=== PATIENT | male | born 1940 | race Caucasian/White ===

== ENCOUNTER 2019-07-10 09:57 | Day surgery (SDC) | payer MEDICARE ==
[2019-07-10] VITALS (9 sets, daily range): BP systolic 114–125; BP diastolic 62–74
[~2019-07-10] VITALS: Ht 177.8 cm; Wt 85.1 kg
[2019-07-10] MEDS ORDERED: normal saline 1,000 ML IV SCH (10:20)
[2019-07-10] MEDS ORDERED: diphenhydrAMINE 25mg capsule PO PRN (10:20)
[2019-07-10 11:30] LABS: ALBUMIN 3.9 G/DL (3.4-5.0); ANION GAP 12 (8-16); BASOPHILS # (AUTO) 0.1 X10'3 (0-0.2); BASOPHILS % (AUTO) 0.9 % (0-1); BLOOD UREA NITROGEN 16 MG/DL (7-18); BUN/CREATININE RATIO 14.3 (5.4-32.0); CALCIUM 8.9 MG/DL (8.5-10.1); CHLORIDE 103 MMOL/L (99-107); CREATININE 1.12 MG/DL (0.60-1.10); EOSINOPHILS # (AUTO) 0.2 X10'3 (0-0.9); EOSINOPHILS % (AUTO) 2.5 % (0-6); GLUCOSE 111 MG/DL (70-104); HEMATOCRIT 42.9 % (42.0-52.0); HEMOGLOBIN 14.7 g/dl (14.0-17.9); LYMPHOCYTES # (AUTO) 1.4 X10'3 (1.1-4.8); LYMPHOCYTES % (AUTO) 14.7 % (21-51); MEAN CORPUSCULAR HEMOGLOBIN 34.6 PG (27.0-31.0); MEAN CORPUSCULAR HGB CONC 34.3 g/dL (33.0-36.5); MEAN CORPUSCULAR VOLUME 100.8 FL (78-98); MEAN PLATELET VOLUME 8.4 FL (7.4-10.4); MONOCYTES # (AUTO) 0.6 X10'3 (0-0.9); MONOCYTES % (AUTO) 6.5 % (2-12); NEUTROPHILS # (AUTO) 7.2 X10'3 (1.8-7.7); NEUTROPHILS % (AUTO) 75.4 % (42-75); PLATELET COUNT 174 X10'3 (140-440); RED BLOOD COUNT 4.25 X10'6 (4.70-6.10); RED CELL DISTRIBUTION WIDTH 14.1 % (11.5-14.5); SODIUM 139 MMOL/L (135-145); WHITE BLOOD COUNT 9.5 X10'3 (4.5-11.0); eGFR 64 ML/MIN
[2019-07-10] MEDS ORDERED: BETA1TAB18 PO (11:30)
[2019-07-10] MEDS ORDERED: CHOL10002 PO (11:30)
[2019-07-10] MEDS ORDERED: LOVA40TA2 PO (11:30)
[2019-07-10] MEDS ORDERED: ASPI-611 PO (11:30)
[2019-07-10] MEDS ORDERED: CARV-49 PO (11:30)
[2019-07-10] MEDS ORDERED: MULT-1085 PO (11:30)
[2019-07-10] MEDS ORDERED: LACT1CAP65 PO (11:30)
[2019-07-10] MEDS ORDERED: LOSA25TA96 PO (11:30)
[2019-07-10] MEDS ORDERED: iohexol 350 MG/ML 50ML vial IV ONE (14:47)
[2019-07-10] MEDS ORDERED: midazolam 2 mg/2 ml injection ONE (14:47)
[2019-07-10] MEDS ORDERED: iohexol 350MG/ML 100ml bottle IV ONE ×2 (14:47→15:41)
[2019-07-10] MEDS ORDERED: fentaNYL/PF 50MCG/1 ML 2ML syringe ONE (14:47)
[2019-07-10] MEDS ORDERED: LIDOcaine 1% (10mg/ml)w/preservative injection 20ml MDV ONE (14:47)
[2019-07-10] MEDS ORDERED: proCHLORperazine 10 MG/2 ml inj IV PRN (16:30)
[2019-07-10] MEDS ORDERED: HYDROcodone/acetaminophen 10/325mg tab PO PRN (16:30)
[2019-07-10] MEDS ORDERED: ondansetron/PF 4mg/2ml inj IV PRN (16:30)
[2019-07-10] MEDS ORDERED: normal saline 1000ml 1,000 ML IV SCH (16:30)
[2019-07-10] MEDS ORDERED: HYDROcodone/acetaminophen 5mg/325mg tablet PO PRN (16:30)
== END 2019-07-10 18:40 | disposition home or self-care (01) ==
LOC: SSTAY O 09:57
PROVIDERS: ATTEND Internal Medicine Cardiovascular Disease
DX: R94.39 Abnormal result of other cardiovascular function study (principal); I25.10 Atherosclerotic heart disease of native coronary artery without angina pectoris; I25.82 Chronic total occlusion of coronary artery; I25.5 Ischemic cardiomyopathy; I10 Essential (primary) hypertension; G47.33 Obstructive sleep apnea (adult) (pediatric); I44.7 Left bundle-branch block, unspecified; E78.5 Hyperlipidemia, unspecified; Z86.73 Personal history of transient ischemic attack (TIA), and cerebral infarction without residual deficits; Z98.890 Other specified postprocedural states; Z79.82 Long term (current) use of aspirin; Z79.899 Other long term (current) drug therapy; Z95.1 Presence of aortocoronary bypass graft
CPT/HCPCS: 36415; 80048; 83735; 85025; 85610; 93005; 93459; 99152; 99153; C1769; C1894; J1644; J2001; J2250; J3010; J7030; Q0163; Q9967; A4620; A6258; C1760

== ENCOUNTER 2019-12-11 07:29 | Day surgery (SDC) | payer MEDICARE ==
[2019-12-11] VITALS (7 sets, daily range): BP systolic 97–123; BP diastolic 59–74
[~2019-12-11] VITALS: Ht 177.8 cm; Wt 84.3 kg
[~2019-12-11 07:29] MED LIST: ASPI-611 PO; BETA1TAB18 PO; CARV-49 PO; CHOL10002 PO; LACT1CAP65 PO; LOSA25TA96 PO; LOVA40TA2 PO; MULT-1085 PO
[2019-12-11] MEDS ORDERED: normal saline 1000ml 1,000 ML IV SCH (08:00)
[2019-12-11] MEDS ORDERED: OMEG1CAP13 PO (08:05)
[2019-12-11 08:39] LABS: BASOPHILS % (AUTO) 0.5 % (0-1); EOSINOPHILS # (AUTO) 0.2 X10'3 (0-0.9); EOSINOPHILS % (AUTO) 1.8 % (0-6); HEMATOCRIT 39.3 % (42.0-52.0); HEMOGLOBIN 13.5 g/dl (14.0-17.9); LYMPHOCYTES # (AUTO) 1.3 X10'3 (1.1-4.8); LYMPHOCYTES % (AUTO) 11.9 % (21-51); MEAN CORPUSCULAR HEMOGLOBIN 34.8 PG (27.0-31.0); MEAN CORPUSCULAR HGB CONC 34.4 g/dL (33.0-36.5); MEAN CORPUSCULAR VOLUME 101.1 FL (78-98); MEAN PLATELET VOLUME 7.7 FL (7.4-10.4); MONOCYTES % (AUTO) 9.6 % (2-12); NEUTROPHILS % (AUTO) 76.2 % (42-75); PLATELET COUNT 196 X10'3 (140-440); RED BLOOD COUNT 3.89 X10'6 (4.70-6.10); RED CELL DISTRIBUTION WIDTH 14.2 % (11.5-14.5); WHITE BLOOD COUNT 10.5 X10'3 (4.5-11.0)
[2019-12-11 08:45] LABS: ALBUMIN 3.1 G/DL (3.4-5.0); ANION GAP 9 (8-16); BLOOD UREA NITROGEN 21 MG/DL (7-18); CALCIUM 8.6 MG/DL (8.5-10.1); CHLORIDE 105 MMOL/L (99-107); CREATININE 1.05 MG/DL (0.60-1.10); GLUCOSE 108 MG/DL (70-104); MAGNESIUM 2.2 MG/DL (1.5-2.4); POTASSIUM 3.8 MMOL/L (3.5-5.1); SODIUM 139 MMOL/L (135-145); TOTAL CARBON DIOXIDE 25.4 MMOL/L (24-32); eGFR 68 ML/MIN
[2019-12-11] MEDS ORDERED: LIDOcaine 1% W/epiNEPHrine 1:100,000 20ml vial ONE (08:57)
[2019-12-11] MEDS ORDERED: fentaNYL/PF 50MCG/1 ML 2ML syringe ONE ×2 (08:57→09:55)
[2019-12-11] MEDS ORDERED: vancomycin 1,000mg inj ONE (08:57)
[2019-12-11] MEDS ORDERED: iohexol 350 MG/ML 50ML vial IV ONE ×2 (08:57→10:03)
[2019-12-11] MEDS ORDERED: ceFAZolin 1000mg inj ONE (08:57)
[2019-12-11] MEDS ORDERED: midazolam 2 mg/2 ml injection ONE ×2 (08:57→09:55)
[2019-12-11] MEDS ORDERED: ketorolac tromethamine 15mg/ml inj. IV ONE (11:40)
[2019-12-11] MEDS ORDERED: ketorolac trometh. 30mg/ml inj. IV ONE (11:40)
[2019-12-11 13:31] LABS: TOTAL CELLS COUNTED 100
[2019-12-11 13:33] LABS: PLATELET ESTIMATE NORMAL; TOXIC GRANULATION 1+
== END 2019-12-11 12:55 | disposition home or self-care (01) ==
LOC: SSTAY O 07:29
PROVIDERS: ATTEND Internal Medicine Cardiovascular Disease
DX: I44.7 Left bundle-branch block, unspecified (principal); I25.10 Atherosclerotic heart disease of native coronary artery without angina pectoris; I42.0 Dilated cardiomyopathy; I10 Essential (primary) hypertension; E78.5 Hyperlipidemia, unspecified; I49.9 Cardiac arrhythmia, unspecified; G47.30 Sleep apnea, unspecified; I25.5 Ischemic cardiomyopathy; Z95.5 Presence of coronary angioplasty implant and graft; Z98.890 Other specified postprocedural states; Z82.49 Family history of ischemic heart disease and other diseases of the circulatory system; Z79.899 Other long term (current) drug therapy
CPT/HCPCS: 33225; 33249; 36415; 71045; 80048; 83735; 85025; 85610; 93005; 99152; 99153; C1769; C1777; C1882; C1887; C1894; C1898; C1900; J0690; J2250; J3010; J3370; J7030; Q9967; A4620; C1895

== ENCOUNTER → 2020-07-08 | Outpatient (CLI) | payer MEDICARE ==
[~2020-07-08] VITALS: Ht 174 cm; Wt 82.6 kg
[~2020-07-08] MED LIST changes: +OMEG1CAP13 PO; +albuterol 2.5 MG/3 ML nebule NEB ONE
[2020-07-08 09:16] LABS: TOTAL HEMOGLOBIN 10.8 G/dl (14.0-18.0)
== END | disposition home or self-care (01) ==
LOC: RT 08:36
PROVIDERS: ATTEND Internal Medicine Pulmonary Disease
DX: J44.9 Chronic obstructive pulmonary disease, unspecified (principal); D64.9 Anemia, unspecified
CPT/HCPCS: 85018; 94060; 94727; 94729; 94760

== ENCOUNTER 2020-07-11 05:50 | Outpatient (CLI) | payer MEDICARE ==
[~2020-07-11 05:50] MED LIST changes: -albuterol 2.5 MG/3 ML nebule NEB ONE
== END 2020-07-11 23:59 | disposition home or self-care (01) ==
LOC: RT 05:50
PROVIDERS: ATTEND Internal Medicine Pulmonary Disease
DX: J44.9 Chronic obstructive pulmonary disease, unspecified (principal)
CPT/HCPCS: 94618